=== PATIENT | female | born 1955 | race Caucasian/White ===

== ENCOUNTER 2017-04-02 14:37 | Emergency (ER) | payer OTHER ==
[~2017-04-02] VITALS: Ht 177.8 cm; Wt 79.5 kg
[2017-04-02 14:44] VITALS: BP 159/82; PULSE 55; RESP 16; O2SAT 98
[2017-04-02 15:24] LABS: BASOPHILS % (AUTO) 0.5 % (0-3); EOSINOPHILS % (AUTO) 2.6 % (0-5); MONOCYTES % (AUTO) 8.9 % (4-12); Mean Corpuscular Hemoglobin 33.6 pg (27.0-35.0); Mean Corpuscular Volume 96.5 fL (81-100); NEUTROPHILS % (AUTO) 45.4 % (40-74); Platelet Count 197 bil/L (150-400)
[2017-04-02 15:48] LABS: TROPONIN T < 0.010 ug/L (0.0-0.011)
--- NOTE | 2017-04-02 15:50 | ED.REPORT ---
HPI-Chest Pain 40 and Over Date of Service April 02, 2017 ED Provider: Yunier Rossi MD 61 year old female with a history of high cholesterol presents to the ER complaining of 12 days of left shoulder pain. She reports that symptoms onset with a sharp pain in her shoulder that radiates down her left arm, with associated numbness and tingling. Since then she has experienced similar pain intermittently on a daily basis, with episodes varying in length and severity. She also endorses several weeks of diarrhea. Patient denies fever, cough, hemoptysis, nausea, vomiting, lower extremity swelling, history of PE/DVT, significant cardiac history, and recent trauma or surgery. When she was seen by her PCP for her symptoms she was prescribed baclofen, diclofenac, and gabapentin. Three days ago she developed a headache and ceased taking her diclofenac. This morning upon awakening her shoulder pain returned, worse than ever. Patient is in the area visiting from [place], [place]. Nursing Notes Stated Complaint: CARDIAC REFERRAL FROM Chief Complaint: Chest Pain Nursing Notes Reviewed: Yes Allergies: Coded Allergies: metronidazole (Verified Allergy, Unknown, NAUSEA, 04/02/17) General Time Seen by MD: 15:49 Chief Complaint Other (Left Shoulder Pain) Hx Obtained From: Patient, Spouse Arrived By: Walk-in Sudden in Onset?: No Onset Occurred: More than a week ago... (12 days) Symptom Duration: Intermittent Associated with: Denies: Cough, non-productive, Cough, productive, Cough, with hemoptysis, Fever, Nausea, Vomiting Similar Sx Previous: No Past Medical History Past Medical History Denies history of PE, DVT Reports: Hyperlipidemia (High cholesterol), Denies: Asthma, COPD, Congestive heart failure, Coronary artery disease, Diabetes mellitus Denies: Atrial fibrillation Smoking History Former Smoker Social History Other Social History: Good social support, Ambulatory Status Independent Review of Systems Constitutional: Denies: Chills, Fever Respiratory: Denies: Hemoptysis, Non-productive cough, Shortness of breath Cardiovascular: Denies: Chest pain GI: Reports: Diarrhea, Denies: Abdominal pain, Nausea, Vomiting Musculoskeletal: Reports: Extremity pain (Left Arm), Joint pain (Left Shoulder) , Denies: Back pain, Lumbar pain, Neck pain Neurologic: Reports: Headache, Numbness (Left Arm), Denies: Syncope Complete sys rev & neg: except as marked. Physical Exam Initial Vital Signs Vital Signs (First) Date Time Temp Pulse Resp B/P Pulse Ox O2 Delivery O2 Flow Rate FiO2 04/02/17 14:44 36.1 55 16 159/82 98 04/02/17 16:50 Room Air Initial VS: Reviewed Head / Eyes: Atraumatic, Normocephalic Neck: Supple, Non-tender, Full range of motion Skin: Warm Neurologic: Alert, Oriented, Nonfocal General/Constitutional: Awake, Alert, No acute distress, Well appearing Respiratory / Chest: Breath sounds NL, Breath sounds = bilat, No respiratory distress, No rales, No rhonchi, No wheezing, No stridor, No chest tenderness Cardiovascular: Heart rate NL, Regular rhythm, Heart sounds NL, No murmurs, Peripheral circulation NL, Pulses = bilaterally, No gross BP differential Lower Extremity / Pelvis / MS: Inspection NL, No swelling, Non-tender, No erythema, No deformity, Neurologic intact, Vascular intact, No edema Upper Extremity / MS: Full range of motion, No swelling, Non-tender, No erythema, No deformity, Neurologic intact, Vascular intact Interpretation & Diagnostics Lab Results Interpretation Result Diagram: 04/02/17 1515 04/02/17 1515 Test 04/02/17 15:15 White Blood Count 6.1th/mm3 (3.8-10.1) Red Blood Count 4.25mil/mm3 (3.90-5.20) Hemoglobin 14.3g/dL (12.0-15.6) Hematocrit 41.0% (35.0-46.0) Mean Corpuscular Volume 96.5fL (81-100) Mean Corpuscular Hemoglobin 33.6pg (27.0-35.0) Mean Corpuscular Hemoglobin Concent 34.9% (32.0-37.0) Red Cell Distribution Width 11.9% (12.3-15.4) Platelet Count 197bil/L (150-400) Neutrophils (%) (Auto) 45.4% (40-74) Lymphocytes (%) (Auto) 42.6% (14-46) Monocytes (%) (Auto) 8.9% (4-12) Eosinophils (%) (Auto) 2.6% (0-5) Basophils (%) (Auto) 0.5% (0-3) Sodium Level 139mEq/L (134-144) Potassium Level 4.2mEq/L (3.5-5.2) Chloride Level 99mEq/L (97-108) Carbon Dioxide Level 26mmol/L (18-29) Blood Urea Nitrogen 10mg/dL (8-27) Creatinine 0.70mg/dL (0.57-1.00) Estimat Glomerular Filtration Rate 121mL/min (>59) Glucose Level 103mg/dL (60-99) Calcium Level 10.1mg/dL (8.5-10.1) Magnesium Level 1.9mg/dL (1.6-2.6) Total Bilirubin 0.4mg/dL (0.0-1.2) Aspartate Amino Transf (AST/SGOT) 54U/L (0-50) Alanine Aminotransferase (ALT/SGPT) 98U/L (0-32) Alkaline Phosphatase 63U/L (25-165) Troponin T < 0.010ug/L (0.0-0.011) Total Protein 7.8g/dL (6.4-8.4) Albumin 4.5g/dL (3.4-5.0) ECG Interpretation ECG Interpretation: Sinus rhythm, rate 53 Time: 15:42 Interpreted by: ED physician X-Ray Chest Interpretation Chest Xray Interpretation: PROCEDURE: X-RAY CHEST ONE VIEW, PORTABLE ([id number]) INDICATIONS: CHEST PAIN TECHNIQUE: One view of the chest was acquired. COMPARISON: None. FINDINGS: Surgical changes and devices: None. Lungs and pleura: No pleural effusions or pneumothorax. Lungs are clear. Mediastinum: Mediastinal contours appear normal. Heart size is normal. Bones and chest wall: No suspicious bony lesions. Overlying soft tissues appear unremarkable. IMPRESSION: No acute process. Dictated by: Vidal Monreal M.D. on 04/02/2017 at 16:40 Approved by: Vidal Monreal M.D. on 04/02/2017 at 16:40 View: Portable, 1 view Interpretation / Wet Read by: Interpret - Radiologist Re-Eval/Medical Decision Med Decision/Clinical Course I do not suspect and immediately dangerous cause for these symptoms. Specifically, I do not believe she has myocardial ischemia, pneumothorax, chest mass, aortic dissection, pulmonary embolism or dangerous neurologic impingement. I believe that her symptoms are most likely musculoskeletal in nature and that outpatient follow-up is appropriate for ongoing management and investigation. I recommended that she discontinue the muscle relaxer and use simple ibuprofen rather than diclofenac. I told her that the dose of gabapentin was not very high and that if it was effective for sleep there was probably no harm and continuing this medication. Source of Hx: Old records Time of Eval: 16:04 Re-Evaluation/Progress Note: Discussed lab and imaging results and plan to discharge. Patient is amenable to the plan. Return precautions given. All other questions addressed. Counseled Regarding: Diagnosis, Lab results, Need for follow-up, When/why to return to ED Discharge & Departure Primary Impression: Left shoulder pain Disposition: Home Discharge Condition All VS Reviewed: Yes Condition: Stable Patient Instructions: Shoulder Pain (ED) Additional Instructions: Your workup today was reassuring. I do not believe that there is any dangerous cause for your symptoms at this time. Take Tylenol or ibuprofen as directed for pain. Apply ice and/or heat, up to three times daily for 20 minutes at a time. Follow-up with your primary care provider as soon as you can to consider further evaluation. Among the things that might be considered include: MRI of cervical spine, electromyelogram of the left upper extremity, neurology or endocrinology consults. Return to the ER if you develop new or worsening pain, chest pain, cough, shortness of breath, weakness/loss of function of your arm, loss of consciousness, swelling of your lower extremities, or any other concerning symptoms. [facility]: [facility] Dev Attestation Portions of this note were transcribed by Efrain Cole. I, Dr. Rossi, personally performed the history, physical exam and medical decision-making; I reviewed and confirmed the accuracy of the information in the transcribed note. Signed by: Dev Aponte, 04/02/2017 at 16:48 copies to: [facility] Yunier Rossi MD April 02, 2017 15:50 EFRAIN COLE April 02, 2017 15:57
[2017-04-02 15:56] LABS: Magnesium 1.9 mg/dL (1.6-2.6)
--- NOTE | 2017-04-02 16:41 | DRSVH ---
PROCEDURE: X-RAY CHEST ONE VIEW, PORTABLE ([id number]) INDICATIONS: CHEST PAIN TECHNIQUE: One view of the chest was acquired. COMPARISON: None. FINDINGS: Surgical changes and devices: None. Lungs and pleura: No pleural effusions or pneumothorax. Lungs are clear. Mediastinum: Mediastinal contours appear normal. Heart size is normal. Bones and chest wall: No suspicious bony lesions. Overlying soft tissues appear unremarkable. IMPRESSION: No acute process. Dictated by: Vidal Monreal M.D. on 04/02/2017 at 16:40 Approved by: Vidal Monreal M.D. on 04/02/2017 at 16:40
[2017-04-02 16:50] VITALS: BP 154/77; PULSE 66; RESP 16; O2SAT 98
== END 2017-04-02 16:51 | disposition home or self-care (01) ==
LOC: SED 14:37
DX: M25.512 Pain in left shoulder (principal); R19.7 Diarrhea, unspecified; E78.5 Hyperlipidemia, unspecified; Z87.891 Personal history of nicotine dependence; Z88.1 Allergy status to other antibiotic agents
CPT/HCPCS: 36415; 71010; 80053; 83735; 84484; 85025; 93005; 96374; 99285; J1885